=== PATIENT | female | born 1960 | race Caucasian/White ===

== ENCOUNTER → 2018-05-05 14:20 | Outpatient (CLI) | payer OTHER, SELFPAY ==
[2018-05-05 14:36] LABS: Add Manual Diff / Slide Review NO; Basophils Percent Auto 0.6 % (0-2); Eosinophils Percent Auto 2.4 % (2-4); Hematocrit 39.4 % (36-46); Hemoglobin 13.3 g/dL (12.0-16.0); Lymphocytes Percent Auto 27.8 % (25-40); Mean Corpuscular HGB Conc 33.6 % (30-36); Mean Corpuscular Hemoglobin 30.3 PG (26-34); Mean Corpuscular Volume 90.1 fL (80-100); Monocytes Percent Auto 8.5 % (3-14); Neutrophils Absolute Auto 4000 /uL (3000-5900); Neutrophils Percent Auto 60.7 % (50-75); Platelet Count 181 X10^3/uL (150-400); Red Blood Cell Count 4.37 X10^6/uL (4.0-5.2); Red Cell Distribution Width 13.3 % (11.6-14.8); White Blood Cell Count 6.6 X10^3/uL (4.5-11.0)
[2018-05-05 14:48] LABS: Alanine Aminotransferase 31 IU/L (9-52); Albumin 4.2 g/dL (3.5-5.0); Albumin Globulin Ratio 1.6 (1.0-2.8); Alkaline Phosphatase 34 U/L (38-126); Aspartate Aminotransferase 20 IU/L (14-36); BUN Creatinine Ratio 24.3 (6-22); Bilirubin Total 0.5 mg/dL (0.2-1.3); Blood Urea Nitrogen 17 mg/dL (7-17); Calcium 8.9 mg/dL (8.4-10.2); Carbon Dioxide 25 mmol/L (22-32); Chloride 103 mmol/L (98-107); Estimated Glomerular Filt Rate > 60.0 mL/min (>60); Globulin 2.6 g/dL (1.7-4.1); Glucose 104 mg/dL (70-100); HEMOLYSIS < 15 (0-50); Sodium 139 mmol/L (137-145); Total Protein 6.8 g/dL (6.3-8.2)
== END ==
PROVIDERS: Visit Provider Nurse Practitioner Gerontology
DX: C50.919 Malignant neoplasm of unspecified site of unspecified female breast (principal)
CPT/HCPCS: 36415; 80053; 85025

== ENCOUNTER → 2018-05-18 13:57 | Outpatient (CLI) | payer OTHER, SELFPAY ==
--- NOTE | 2018-05-20 09:39 | PC.NURSE ---
Per Ronda's request, spoke with pt and told her that the results of her bone density test are normal. She thanked me and had no further questions at this time.
== END ==
PROVIDERS: Visit Provider Nurse Practitioner Gerontology
DX: C50.919 Malignant neoplasm of unspecified site of unspecified female breast (principal); Z78.0 Asymptomatic menopausal state; Z87.891 Personal history of nicotine dependence
CPT/HCPCS: 77080

== ENCOUNTER → 2018-08-26 15:25 | Outpatient (CLI) | payer OTHER, SELFPAY ==
[2018-08-26 15:45] LABS: Add Manual Diff / Slide Review NO; Basophils Percent Auto 0.9 % (0-2); Eosinophils Percent Auto 1.9 % (2-4); Hematocrit 38.9 % (36-46); Hemoglobin 12.7 g/dL (12.0-16.0); Lymphocytes Percent Auto 30.6 % (25-40); Mean Corpuscular HGB Conc 32.7 % (30-36); Mean Corpuscular Volume 91.5 fL (80-100); Neutrophils Absolute Auto 3600 /uL (3000-5900); Neutrophils Percent Auto 56.6 % (50-75); Platelet Count 187 X10^3/uL (150-400); Red Blood Cell Count 4.25 X10^6/uL (4.0-5.2); Red Cell Distribution Width 13.6 % (11.6-14.8); White Blood Cell Count 6.3 X10^3/uL (4.5-11.0)
[2018-08-26 16:02] LABS: Alanine Aminotransferase 26 IU/L (9-52); Albumin 4.3 g/dL (3.5-5.0); Albumin Globulin Ratio 1.9 (1.0-2.8); Alkaline Phosphatase 28 U/L (38-126); Aspartate Aminotransferase 22 IU/L (14-36); BUN Creatinine Ratio 33.3 (6-22); Bilirubin Total 0.4 mg/dL (0.2-1.3); Blood Urea Nitrogen 20 mg/dL (7-17); Calcium 9.3 mg/dL (8.4-10.2); Carbon Dioxide 28 mmol/L (22-32); Chloride 106 mmol/L (98-107); Estimated Glomerular Filt Rate > 60.0 mL/min (>60); Globulin 2.3 g/dL (1.7-4.1); Glucose 82 mg/dL (70-100); HEMOLYSIS < 15 (0-50); Potassium 3.9 mmol/L (3.4-5.1); Sodium 144 mmol/L (137-145); Total Protein 6.6 g/dL (6.3-8.2)
== END ==
PROVIDERS: Visit Provider Nurse Practitioner Gerontology
DX: C50.212 Malignant neoplasm of upper-inner quadrant of left female breast (principal); Z17.0 Estrogen receptor positive status [ER+]; Z79.810 Long term (current) use of selective estrogen receptor modulators (SERMs)
CPT/HCPCS: 36415; 80053; 85025

== ENCOUNTER 2018-08-29 15:30 | Oncology outpatient (ONC) | payer OTHER, SELFPAY ==
--- NOTE | 2018-05-13 08:50 | ONC.APRN.PN ---
Assessment and Plan (1) Breast cancer Current visit: No Status: Acute 05/13/18 13:05 05/13/18 13:07 Xiomara is a 58-year-old female now 2 years and 7 months from original diagnosis of luminal like breast cancer. She is tolerating tamoxifen without adverse effects in the adjuvant setting. She is due for her annual screening bilateral mammogram this August of 2018. She also will need a gynecology appointment. CBC and CMP unremarkable. Exam is unremarkable today. Overall the patient is feeling well without any acute complaints. Return to clinic in 3 months for provider visit, exam, CBC, CMP. Mammogram to follow. PN -Subjective Interval history: The patient is a 58 year old Female who is being seen in the clinic 05/13/2018. She carries a diagnosis of stage II node-negative ER positive HER-2 negative breast cancer in clinical remission/surveillance since her original diagnosis was made back on July 2015. She presents today for 3 month clinical evaluation. She has been taking tamoxifen in the adjuvant setting since February of 2016. No new complaints whatsoever on exam today. No vaginal bleeding. No hot flashes. Activity tolerance is unchanged. Appetite is unchanged, weight is stable. No new lumps or bumps, no new pain. Denies cough, fever, chills. No recent illnesses or infections. No new health concerns. No headaches. Past Medical History The patient's past medical history is significant for: 1. Left-sided invasive breast cancer. Stage II, pT2 N0 M0 Diagnosis: -08/10/2015. Core needle biopsy of the left breast at the 10 o'clock position.Pathology confirming an invasive carcinoma with a [place] histological grade of 2/3 without LVI. Associated DCIS was noted. Immunostain showing ER and [place] positivity at 95% and 90% respectively. HER2 negative, Ki-67 less than 10%. -09/09/2015. Partial mastectomy with sentinel node procedure. Primary measuring 20 x 12 mm in greatest diameter. Daria histological grade 2/3. DCIS was also seen. Surgical margins were clear with no tumor on ink, closet was the DCIS at 1 mm at the lateral margin. [place] node was otherwise negative. Prognosis: -10/12/2015. Oncotype DX. Recurrence score 25: 10-year risk of distant recurrence after 5 years of tamoxifen at 16%. Adjuvant therapy: -11/14/2015-01/16/2016. Cyclophosphamide paclitaxel ?4. - January 2017. Patient completed radiation therapy. -February 2016-July 2017. Tamoxifen 20 mg daily. Of note, the patient was likely post menopausal pre chemotherapy. -November 23, 2017 - Present: Exemestane 25 mg. Surveillance: -09/20/2017. Bilateral screening mammogram. Extremely dense. No evidence of recurrent disease. -07/28/2017 transvaginal pelvic ultrasound. Uterus is normal size. Endometrium measuring 10 mm and combined thickness. No adnexal pathology seen. No increase uterine blood flow. -02/11/2016. Bone density scan. No evidence of osteopenia or osteoporosis. -02/11/2016. Echocardiogram. EF 60%. No valvualr abnormalities. 2. Post-menopausal hot flashes, managed with her venlafaxine. 3. Chronic headaches, non-migraine on presentation. 4. Irritable bowel syndrome. Home Medications and Allergies Home Medications Medication Instructions Recorded Confirmed Type citalopram [Celexa] 10 mg PO QDAY #30 tab 03/11/17 Rx [IBS MEDICATION] PRN #0 03/27/17 History tamoxifen 10 mg PO BID #60 tab 02/15/18 Rx Allergies Allergy/AdvReac Type Severity Reaction Status Date / Time iodine [IODINE] Allergy Unknown RASH Unverified 03/02/18 13:08 Exam Narrative: well appearing - Constitutional positive no acute distress, positive average body habitus - Routine HEENT Exam Head: Present: normocephalic, atraumatic Eye: Present: conjunctivae pink. Absent: conjunctival icterus, scleral injection - Routine Respiratory Exam Present: Clear to auscultation bilaterally - Routine Cardiovascular Exam Present: RRR, S1, S2. Absent: murmur, gallop, rubs - Routine Abdominal Exam Present: soft, normoactive bowel sounds - Routine Skin Exam Present: intact, normal turgor. Absent: petechiae, rash - Routine Neurological Exam Present: alert, oriented X3 - Routine Psychiatric Exam Present: normal affect, normal thought process
[2018-05-13 12:39] VITALS: BP 116/77; PULSE 66; RESP 18; TEMP 36.8; O2SAT 98
[2018-08-29 15:57] VITALS: BP 115/65; PULSE 58; RESP 18; TEMP 36.8; O2SAT 99
--- NOTE | 2018-08-29 16:43 | ONC.APRN.PN ---
PN -Subjective Interval history: The patient is a 58 year old Female who is being seen in the clinic 08/29/2018. She carries a diagnosis of stage II node-negative ER positive HER-2 negative breast cancer in clinical remission/surveillance since her original diagnosis was made back on July 2015. She presents today for 3 month clinical evaluation. She has been taking tamoxifen in the adjuvant setting since February of 2016. No new complaints whatsoever on exam today. No vaginal bleeding. No hot flashes. Activity tolerance is unchanged. Appetite is unchanged, weight is stable. No new lumps or bumps, no new pain. Denies cough, fever, chills. No recent illnesses or infections. No new health concerns. No headaches. She does not have a primary care provider, has not had a DENTAL EQUIPMENT TECHNICIAN exam in years. Also has not had colonoscopy. Past Medical History The patient's past medical history is significant for: 1. Left-sided invasive breast cancer. Stage II, pT2 N0 M0 Diagnosis: -08/10/2015. Core needle biopsy of the left breast at the 10 o'clock position.Pathology confirming an invasive carcinoma with a [place] histological grade of 2/3 without LVI. Associated DCIS was noted. Immunostain showing ER and [place] positivity at 95% and 90% respectively. HER2 negative, Ki-67 less than 10%. -09/09/2015. Partial mastectomy with sentinel node procedure. Primary measuring 20 x 12 mm in greatest diameter. [place] histological grade 2/3. DCIS was also seen. Surgical margins were clear with no tumor on ink, closet was the DCIS at 1 mm at the lateral margin. [place] node was otherwise negative. Prognosis: -10/12/2015. Oncotype DX. Recurrence score 25: 10-year risk of distant recurrence after 5 years of tamoxifen at 16%. Adjuvant therapy: -11/14/2015-01/16/2016. Cyclophosphamide paclitaxel ?4. - January 2017. Patient completed radiation therapy. -February 2016-July 2017. Tamoxifen 20 mg daily. Of note, the patient was likely post menopausal pre chemotherapy. -November 23, 2017 - Present: Exemestane 25 mg. Surveillance: -09/20/2017. Bilateral screening mammogram. Extremely dense. No evidence of recurrent disease. -07/28/2017 transvaginal pelvic ultrasound. Uterus is normal size. Endometrium measuring 10 mm and combined thickness. No adnexal pathology seen. No increase uterine blood flow. -02/11/2016. Bone density scan. No evidence of osteopenia or osteoporosis. -02/11/2016. Echocardiogram. EF 60%. No valvualr abnormalities. 2. Post-menopausal hot flashes, managed with her venlafaxine. 3. Chronic headaches, non-migraine on presentation. 4. Irritable bowel syndrome. Home Medications and Allergies Home Medications Medication Instructions Recorded Confirmed Type citalopram [Celexa] 10 mg PO QDAY #30 tab 03/11/17 Rx [IBS MEDICATION] PRN #0 03/27/17 History tamoxifen 10 mg PO BID #60 tab 02/15/18 Rx Allergies Allergy/AdvReac Type Severity Reaction Status Date / Time iodine [IODINE] Allergy Unknown RASH Unverified 03/02/18 13:08 Exam Vital signs: Last Vital Signs Temp 98.2 F 08/29/18 15:57 Pulse 58 L 08/29/18 15:57 Resp 18 08/29/18 15:57 BP 115/65 08/29/18 15:57 Pulse Ox 99 08/29/18 15:57 Assessment and Plan (1) Breast cancer Current visit: No Status: Acute The patient is a 58 year old Female who is being seen in the clinic 08/29/2018. She carries a diagnosis of stage II node-negative ER positive HER-2 negative breast cancer in clinical remission/surveillance since her original diagnosis was made back on July 2015. Has been taking tamoxifen since February 2016. Reassuringly on exam today no clinical signs or symptoms to suggest disease recurrence. I did discuss with the patient the importance of establishing with a primary care provider specifically for preventative medicine. I would like for the patient to have a DENTAL EQUIPMENT TECHNICIAN exam at least every other year, preferably yearly. Patient is also due for her baseline screening colonoscopy. She is due for annual bilateral screening mammogram as well. In regards to new onset voice hoarseness and questionable finding on outside imaging (chiropractor) I will order a two view plain film C-spine. Based on these findings will call patient and discuss further evaluation if indicated. Patient verbalizes understanding and agrees with the above plan of care. I will have the pt return in 3 months to establish care with one of our new oncologists.
--- NOTE | 2018-09-13 11:27 | PC.NURSE ---
Pt notified of changes on imaging. Encouraged f/u with PCP
--- NOTE | 2018-09-13 11:29 | PC.NURSE ---
Pt notified of no acute changes on imaging. Encouraged to F/U with PCP which pt says is sometime in celio
== END 2018-08-30 12:00 ==
PROVIDERS: Visit Provider Nurse Practitioner Gerontology
DX: C50.212 Malignant neoplasm of upper-inner quadrant of left female breast (principal); Z17.0 Estrogen receptor positive status [ER+]; Z79.810 Long term (current) use of selective estrogen receptor modulators (SERMs)
CPT/HCPCS: 72040; 99214

== ENCOUNTER → 2018-08-29 16:34 | Outpatient (CLI) | payer OTHER, SELFPAY ==
--- NOTE | 2018-08-29 16:36 | DI.RAD.S_ITS ---
PROCEDURE: XR CERVICAL SPINE 2V OR 3V INDICATIONS: new onset neck pain, no injury. TECHNIQUE: 3 view(s) of the cervical spine were acquired. COMPARISON: [facility], CT, C-SPINE WITHOUT CONTRAST, 03/27/2017, 14:25. FINDINGS: Bones: Mild loss of disc height is seen at the C5-C6 level. Bridging anterior osteophytes are seen at C5-C6 and C6-C7. No fractures or dislocations are seen. No suspicious lytic or blastic lesions are seen. Soft tissues: No prevertebral soft tissue swelling. The visualized lung apices are unremarkable. IMPRESSION: Cervical spine degenerative changes are seen, which are most prominent at C5-C6. Dictated by: Hugo Escoto M.D. on 08/29/2018 at 17:00 Approved by: Hugo Escoto M.D. on 08/29/2018 at 17:01
== END ==
PROVIDERS: Visit Provider Nurse Practitioner Gerontology
DX: M50.322 Other cervical disc degeneration at C5-C6 level (principal)
CPT/HCPCS: 72040

== ENCOUNTER → 2018-11-29 15:18 | Outpatient (CLI) | payer OTHER, SELFPAY ==
[2018-11-29 15:49] LABS: Add Manual Diff / Slide Review NO; Basophils Percent Auto 0.6 % (0-2); Hematocrit 37.9 % (36-46); Hemoglobin 12.6 g/dL (12.0-16.0); Lymphocytes Percent Auto 31.8 % (25-40); Mean Corpuscular HGB Conc 33.4 % (30-36); Mean Corpuscular Hemoglobin 30.4 PG (26-34); Monocytes Percent Auto 8.7 % (3-14); Neutrophils Absolute Auto 3700 /uL (1500-7000); Neutrophils Percent Auto 56.9 % (50-75); Platelet Count 197 X10^3/uL (150-400); Red Blood Cell Count 4.16 X10^6/uL (4.0-5.2); Red Cell Distribution Width 13.3 % (11.6-14.8); White Blood Cell Count 6.5 X10^3/uL (4.5-11.0)
[2018-11-29 16:03] LABS: Alanine Aminotransferase 25 IU/L (9-52); Albumin 4.2 g/dL (3.5-5.0); Albumin Globulin Ratio 1.8 (1.0-2.8); Alkaline Phosphatase 33 U/L (38-126); Aspartate Aminotransferase 18 IU/L (14-36); Bilirubin Total 0.3 mg/dL (0.2-1.3); Blood Urea Nitrogen 12 mg/dL (7-17); Calcium 9.2 mg/dL (8.4-10.2); Carbon Dioxide 30 mmol/L (22-32); Chloride 101 mmol/L (98-107); Estimated Glomerular Filt Rate > 60.0 mL/min (>60); Globulin 2.3 g/dL (1.7-4.1); Glucose 80 mg/dL (70-100); HEMOLYSIS < 15 (0-50); Sodium 140 mmol/L (137-145); Total Protein 6.5 g/dL (6.3-8.2)
== END ==
PROVIDERS: Visit Provider Nurse Practitioner Gerontology
DX: C50.919 Malignant neoplasm of unspecified site of unspecified female breast (principal)
CPT/HCPCS: 36415; 80053; 85025

== ENCOUNTER → 2018-12-26 15:06 | Outpatient (CLI) | payer OTHER, SELFPAY ==
--- NOTE | 2018-12-26 | DI.MG.S_ITS ---
BILATERAL DIGITAL SCREENING MAMMOGRAM 3D/2D WITH CAD POST LUMPECTOMY: 12/26/2018 CLINICAL: Routine screening. Personal history of breast cancer. Family history of breast cancer. Comparison is made to exam dated: 09/20/2017 [facility]. The tissue of both breasts is extremely dense, which lowers the sensitivity of mammography. Current study was also evaluated with a Computer Aided Detection (CAD) system. There are benign post operative findings in the left breast. No significant masses, calcifications, or other findings are seen in either breast. There has been no significant interval change. IMPRESSION: There is no mammographic evidence of malignancy. A 1 year screening mammogram is recommended. This exam was interpreted at Station ID: [id number]. NOTE: For mammograms, a report in lay terms will be sent to the patient. Approximately 15% of breast malignancies will not be visualized mammographically. In the management of a palpable breast mass, a negative mammogram must not discourage biopsy of a clinically suspicious lesion. Electronically Signed By: Rosa sams/milton:12/26/2018 16:11:11 copy to: SHAR CALDWELL letter sent: Normal Exam ACR BI-RADS Category 2: Benign Finding(s) 3342F
== END ==
PROVIDERS: Visit Provider Internal Medicine Hematology & Oncology
DX: Z12.31 Encounter for screening mammogram for malignant neoplasm of breast (principal); Z85.3 Personal history of malignant neoplasm of breast; Z80.3 Family history of malignant neoplasm of breast
CPT/HCPCS: 77063; 77067

== ENCOUNTER → 2019-02-28 07:21 | Outpatient (CLI) | payer OTHER, SELFPAY ==
[2019-02-28 09:13] LABS: Add Manual Diff / Slide Review NO; Basophils Absolute Auto 100 /uL (0-100); Eosinophils Absolute Auto 200 /uL (0-450); Eosinophils Percent Auto 3.6 % (2-4); Hematocrit 39.9 % (36-46); Hemoglobin 13.4 g/dL (12.0-16.0); Lymphocytes Absolute Auto 1500 /uL (1100-4500); Lymphocytes Percent Auto 26.8 % (25-40); Mean Corpuscular HGB Conc 33.5 % (30-36); Mean Corpuscular Hemoglobin 30.9 PG (26-34); Mean Corpuscular Volume 92.3 fL (80-100); Monocytes Absolute Auto 400 /uL (0-900); Monocytes Percent Auto 7.7 % (3-14); Neutrophils Absolute Auto 3400 /uL (1500-7000); Neutrophils Percent Auto 60.9 % (50-75); Platelet Count 194 X10^3/uL (150-400); Red Blood Cell Count 4.32 X10^6/uL (4.0-5.2); Red Cell Distribution Width 13.4 % (11.6-14.8); White Blood Cell Count 5.6 X10^3/uL (4.5-11.0)
[2019-02-28 09:38] LABS: Alanine Aminotransferase 18 IU/L (9-52); Albumin 4.3 g/dL (3.5-5.0); Alkaline Phosphatase 29 U/L (38-126); Aspartate Aminotransferase 18 IU/L (14-36); Bilirubin Total 0.2 mg/dL (0.2-1.3); Blood Urea Nitrogen 18 mg/dL (7-17); Carbon Dioxide 26 mmol/L (22-32); Chloride 105 mmol/L (98-107); Cholesterol 180 mg/dL (140-199); Estimated Glomerular Filt Rate > 60.0 mL/min (>60); Globulin 2.2 g/dL (1.7-4.1); Glucose 93 mg/dL (70-100); HDL Cholesterol 62 mg/dL (40-60); HEMOLYSIS < 15 (0-50); LDL Cholesterol Calculated 109 mg/dL (<100); Potassium 3.9 mmol/L (3.4-5.1); Sodium 141 mmol/L (137-145); Total Protein 6.5 g/dL (6.3-8.2); Triglycerides 45 mg/dL (35-150)
[2019-02-28 10:03] LABS: Thyroid Stimulating Hormone 0.06 uIU/mL (0.47-4.68)
[2019-03-01 16:51] LABS: Free T3, Triiodothyronine Free 3.87 pg/mL (2.77-5.27); Free T4, Direct Thyroxine 1.14 ng/dL (0.78-2.19)
[2019-03-04 17:14] LABS: Anti Thyroglobulin Antibody < 1 IU/mL (< 2); Thyroid Peroxidase Antibodies 1 IU/mL (< 9)
== END ==
PROVIDERS: Visit Provider Naturopath
DX: Z00.00 Encounter for general adult medical examination without abnormal findings (principal); K59.00 Constipation, unspecified; F33.0 Major depressive disorder, recurrent, mild; R94.6 Abnormal results of thyroid function studies
CPT/HCPCS: 36415; 80053; 80061; 84439; 84443; 84481; 85025; 86376; 86800

== ENCOUNTER → 2019-10-30 09:12 | Outpatient (CLI) | payer OTHER, SELFPAY ==
--- NOTE | 2019-10-30 09:15 | DI.MG.S_ITS ---
BILATERAL DIGITAL DIAGNOSTIC MAMMOGRAM 3D/2D: 10/30/2019 CLINICAL: Personal history of breast cancer. Family history of breast cancer. Left breast nipple abnormality described as a small mass the size of ' grain of rice'. There is no pain in general, and this was removed in her doctor's office per report. She says currently without symptoms. No nipple discharge. Comparison is made to exams dated: 12/26/2018 mammogram, 09/20/2017 mammogram - [facility], and 07/29/[address] mamm[address] - [facility]. The tissue of both breasts is extremely dense, which lowers the sensitivity of mammography. The left breast has stable post-operative findings. No significant masses, calcifications, or other findings are seen in either breast. IMPRESSION: INCOMPLETE: NEEDS ADDITIONAL IMAGING EVALUATION There is no abnormality seen in the left breast to correspond with the nipple abnormality in the sub-areolar depth, however, ultrasound is recommended and will immediately follow this examination. This exam was interpreted at Station ID: [id number]. NOTE: For mammograms, a report in lay terms will be sent to the patient. Approximately 15% of breast malignancies will not be visualized mammographically. In the management of a palpable breast mass, a negative mammogram must not discourage biopsy of a clinically suspicious lesion. Electronically Signed By: Niko Suarez M.D. aty/:10/30/2019 16:50:03 copy to: SHAR CALDWELL ACR BI-RADS Category 0: Incomplete [id number]
--- NOTE | 2019-10-30 09:15 | DI.US.S_ITS ---
ULTRASOUND OF LEFT BREAST: 10/30/2019 CLINICAL: Focal left nipple lump. Comparison is made to exams dated: 10/30/2019 mammogram, 12/26/2018 mammogram, 09/20/2017 mammogram - [facility], 07/29/2016 mammogram - [facility], 08/16/2015 breast MRI - [facility], and 07/30/2015 mammogram - [facility]. Color flow and real-time ultrasound of the left breast were performed. Álvarez scale images of the real-time examination were reviewed. The left breast has post-operative/post treatment findings with associated ill-defined scarring in the anterior depth of the left breast. No ductal dilatation. No intraductal masses. No axillary lymphadenopathy. IMPRESSION: BENIGN There is no sonographic evidence of malignancy. There is no abnormality seen in the left breast to correspond with the area of clinical concern and nipple abnormality, however, clinical followup is recommended for persistent or recurrent symptoms. A 1 year screening mammogram is recommended. This exam was interpreted at Station ID: [id number]. Electronically Signed By: Niko Suarez M.D. at/:10/30/2019 16:53:41 copy to: SHAR CALDWELL letter sent: Normal Exam Ultrasound BI-RADS: 2 Benign
[2019-10-30 10:15] LABS: Add Manual Diff / Slide Review NO; Basophils Absolute Auto 0 /uL (0-100); Basophils Percent Auto 1.2 % (0-2); Eosinophils Absolute Auto 100 /uL (0-450); Hematocrit 42.1 % (36-46); Hemoglobin 14.4 g/dL (12.0-16.0); Lymphocytes Absolute Auto 1600 /uL (1100-4500); Lymphocytes Percent Auto 39.3 % (25-40); Mean Corpuscular HGB Conc 34.1 % (30-36); Mean Corpuscular Hemoglobin 31.1 PG (26-34); Mean Corpuscular Volume 91.3 fL (80-100); Monocytes Absolute Auto 400 /uL (0-900); Monocytes Percent Auto 8.5 % (3-14); Neutrophils Absolute Auto 2000 /uL (1500-7000); Platelet Count 175 X10^3/uL (150-400); Red Blood Cell Count 4.61 X10^6/uL (4.0-5.2); Red Cell Distribution Width 13.1 % (11.6-14.8); White Blood Cell Count 4.1 X10^3/uL (4.5-11.0)
[2019-10-30 10:25] LABS: Alanine Aminotransferase 17 IU/L (<35); Albumin 4.9 g/dL (3.5-5.0); Albumin Globulin Ratio 1.9 (1.0-2.8); Alkaline Phosphatase 33 U/L (38-126); Aspartate Aminotransferase 24 IU/L (14-36); BUN Creatinine Ratio 23.3 (6-22); Bilirubin Total 0.9 mg/dL (0.2-1.3); Blood Urea Nitrogen 14 mg/dL (7-17); Calcium 9.8 mg/dL (8.4-10.2); Carbon Dioxide 28 mmol/L (22-32); Chloride 103 mmol/L (98-107); Estimated Glomerular Filt Rate > 60.0 mL/min (>60); Globulin 2.6 g/dL (1.7-4.1); Glucose 92 mg/dL (70-100); HEMOLYSIS < 15 (0-50); Lactate Dehydrogenase 348 U/L (313-618); Sodium 140 mmol/L (137-145); Total Protein 7.5 g/dL (6.3-8.2)
[2019-10-30 10:40] LABS: Prolactin 7.9 ng/mL (3.0-18.6)
[2019-10-30 10:55] LABS: Thyroid Stimulating Hormone 1.76 uIU/mL (0.47-4.68)
== END ==
PROVIDERS: Visit Provider Internal Medicine Hematology & Oncology
DX: R92.8 Other abnormal and inconclusive findings on diagnostic imaging of breast (principal); C50.212 Malignant neoplasm of upper-inner quadrant of left female breast; N64.52 Nipple discharge; N64.3 Galactorrhea not associated with childbirth; Z80.3 Family history of malignant neoplasm of breast; Z17.0 Estrogen receptor positive status [ER+]
CPT/HCPCS: 36415; 76642; 77066; 80053; 83615; 84146; 84443; 85025; G0279

== ENCOUNTER 2020-05-26 15:00 | Emergency (ER) | payer OTHER, SELFPAY ==
[2020-05-26 15:14] VITALS: BP 117/58; PULSE 77; RESP 15; TEMP 37.1; O2SAT 99; BMI 25.7
--- NOTE | 2020-05-26 16:23 | ED.WOUNDLAC ---
HPI - Wound/Laceration General Chief Complaint: Wound/Laceration Stated Complaint: injury to right foot, bleeding Time Seen by Provider: 05/26/20 15:47 Source: patient Mode of arrival: Ambulatory Limitations: no limitations History of Present Illness HPI narrative: CC: laceration dorsal right foop HPI: The patient is a 60-year-old female who sustained a 1 cm laceration to the dorsum of her right foot when she dropped her gardening clippers while cutting aleisha is and sustained her laceration. She states that her tetanus is up-to-date and is less than 10 years ago. She denies any other complaints. She has had no recent fever chills sweats chest pain cough shortness of breath abdominal pain nausea or vomiting. Related Data Home Medications Medication Instructions Recorded Confirmed [IBS MEDICATION] 1 tab DAILY #0 03/27/17 11/09/19 Previous Rx's Medication Instructions Recorded citalopram [Celexa] 10 mg PO QDAY #30 tab 03/11/17 tamoxifen 20 mg PO DAILY #90 tab 10/09/19 Allergies Allergy/AdvReac Type Severity Reaction Status Date / Time iodine [IODINE] Allergy Unknown RASH Verified 12/02/18 15:31 Review of Systems Review of Systems Narrative: The patient's review of systems were all negative except for those mentioned in the history of present illness. Patient History Social History Smoking Status: Never smoker Smoking Status: Never smoker alcohol intake frequency: 0-2 drinks per day Substance Use Type: does not use Exam Narrative Exam Narrative: PHYSICAL EXAM: PHYSICAL EXAM: CONSTITUTIONAL: Awake, Alert, Oriented, Coherent, Cooperative in NAD. Does not appear toxic or ill. HEAD: AT/NC EENT: PERRL, FROM of eyes, EXTREMITIES: Patient has a slightly sinusoidal oblique 1.5 cm laceration over the dorsum of her right foot just proximal to the metatarsophalangeal joint of her 4th toe. The laceration is a full-thickness laceration. Bleeding was controlled. SKIN: No rash, bruising, petechiae or purpura otherwise noted . NEURO: Awake, alert, oriented, conversive, cranial nerves II-XII are symmetrical , moves all 4 extremities and is ambulatory. MENTAL HEALTH: Does not appear anxious or depressed. Initial Vital Signs Initial Vital Signs: Vital Signs Temperature 98.7 F 05/26/20 15:14 Pulse Rate 77 05/26/20 15:14 Respiratory Rate 15 05/26/20 15:14 Blood Pressure 117/58 L 05/26/20 15:14 Pulse Oximetry 99 05/26/20 15:14 Course Course Course Narrative: 1615: PROCEDURE NOTE: LACERATION REPAIR:The slightly oblique 1.5 cm laceration over the dorsum of her right foot just proximal to the metatarsophalangeal joint of the 4th toe was attempted to be closed with 1 horizontal mattress suture. However this did not close the laceration completely and a simple 2nd 4-0 nylon suture was placed. This was performed after it was adequately cleansed with saline and 4x4s and anesthetized with 1.5 cc of 2% lidocaine. The patient tolerated the procedure well. Bleeding was controlled bandage applied and the patient discharge. Orders Ordered: Discontinued Medications Lidocaine HCl (Xylocaine 2%) 5 ml SUBCUT NOW ONE Stop: 05/26/20 15:55 Last Admin: 05/26/20 16:24 Dose: 5 ml Documented by: NADINE Vital Signs Vital signs: Vital Signs - 8 hr 05/26/20 15:14 05/26/20 16:25 Temperature 98.7 F 98.1 F Pulse Rate 77 68 Respiratory Rate 15 16 Blood Pressure 117/58 L 120/58 L Pulse Oximetry 99 97 Discharge Plan Departure Patient Disposition: Home Clinical Impression: Laceration Foot laceration Qualifiers: Encounter type: initial encounter Laterality: right Qualified Code(s): S91.311A - Laceration without foreign body, right foot, initial encounter Discharge Date/Time: 05/26/20 16:41 Instructions: DI for Wound Infection, DI for Minor Laceration Activity Restrictions/Additional Instructions: 1. Keep your laceration covered. Cover it with a Band-Aid. Apply a small amount triple antibiotic with acute tear of over the laceration and cover with a Band-Aid morning and night 2. Wound check in 2 days. If the laceration appears to become red hot swollen or draining you need to return to the emergency department. Otherwise follow-up with your primary care physician. 3. After 24 hours you can wash the laceration in running water with soap pat dry and apply the antibiotic ointment has recommended. 4 sutures come out in 7-10 days. 5. You can follow-up with your primary care physician or return to the emergency department for re-evaluation. 6. For pain and discomfort you can take 3, 200 mg ibuprofen to help every 6 hours or 1 Aleve tablet every 12 hours. Prescriptions: No Action citalopram [Celexa] 10 MG tablet 10 mg PO QDAY Qty: 30 RF: 6 [IBS MEDICATION] 1 tab DAILY Qty: 0 RF: 0 tamoxifen 20 mg Tablet 20 mg PO DAILY Qty: 90 RF: 2 Referrals: Peggy Springer ARNP [Primary Care Provider] -
[2020-05-26] MEDS: LIDOCAINE 2% INJ MDV 5 ML SUBCUT (16:24)
[2020-05-26 16:25] VITALS: BP 120/58; PULSE 68; RESP 16; TEMP 36.7; O2SAT 97
== END 2020-05-26 16:41 | disposition home or self-care (01) ==
PROVIDERS: Emergency Provider Emergency Medicine
DX: S91.311A Laceration without foreign body, right foot, initial encounter (principal); W45.8XXA Other foreign body or object entering through skin, initial encounter
CPT/HCPCS: 12001; 99282; 99283

== ENCOUNTER → 2020-10-31 14:37 | Outpatient (CLI) | payer BC, SELFPAY ==
--- NOTE | 2020-10-31 14:39 | DI.MG.S_ITS ---
BILATERAL DIGITAL SCREENING MAMMOGRAM 3D/2D WITH CAD POST LUMPECTOMY: 10/31/2020 CLINICAL: Routine screening. Personal history of left breast cancer. Family history of breast cancer. Comparison is made to exams dated: 12/26/2018 mammogram, 10/30/2019 mammogram, and 09/20/2017 mammogram - [facility]. The tissue of both breasts is extremely dense, which lowers the sensitivity of mammography. Current study was also evaluated with a Computer Aided Detection (CAD) system. No significant masses, calcifications, or other findings are seen in either breast. There has been no significant interval change. IMPRESSION: NEGATIVE There is no mammographic evidence of malignancy. A 1 year screening mammogram is recommended. This exam was interpreted at Station ID: [id number]. NOTE: For mammograms, a report in lay terms will be sent to the patient. Approximately 15% of breast malignancies will not be visualized mammographically. In the management of a palpable breast mass, a negative mammogram must not discourage biopsy of a clinically suspicious lesion. Electronically Signed By: Rosa sams/milton:10/31/2020 16:53:33 copy to: MARIETTA REHMAN letter sent: Normal Exam ACR BI-RADS Category 1: Negative [id number]
== END ==
PROVIDERS: PCP Naturopath; Referring Provider Naturopath; Visit Provider Internal Medicine Hematology & Oncology
DX: Z12.31 Encounter for screening mammogram for malignant neoplasm of breast (principal); Z85.3 Personal history of malignant neoplasm of breast; Z80.3 Family history of malignant neoplasm of breast
CPT/HCPCS: 77063; 77067

== ENCOUNTER 2021-01-08 09:38 | Emergency (ER) | payer BC, SELFPAY ==
[2021-01-08 09:56] VITALS: BP 160/69; PULSE 70; RESP 18; TEMP 36.4; O2SAT 99; BMI 25.0
--- NOTE | 2021-01-08 10:21 | ED_ITS ---
HPI - Extremity Problem <Darlyn Acevedo PA-C - Last Filed: 01/08/21 13:23> General Chief complaint: Extremity Problem,Nontraumatic Stated complaint: Right side Sciatica pain Time Seen by Provider: 01/08/21 10:21 Source: patient Mode of arrival: Ambulatory Limitations: no limitations History of Present Illness HPI Narrative: Well-appearing extremely uncomfortable 7-year-old woman who pr esents complaining right low back pain radiating into her buttock and down the back of her right leg to her knee. She endorses mild chronic low back pain on the right and occasional hip pains but she did yoga class on last week about 6 days ago and on Wednesday she was having this severe pain that has been progressively worsening every day it is worse with walking, standing moving her leg it is relieved by bring her knee up towards her chest somewhat. She describes the pain as sharp and shooting pain traveling from her right low back to her right buttock and into her back of her thigh. She does say she has had sciatica before years ago and this feels similar but it is worse. She has tried ibuprofen at home with no relief including some ibuprofen this morning. Last night her pain was so bad that she was at 1 point crawling because it was too painful to walk. She denies fevers, chills, dysuria, flank pain, abdominal pain, chest pain, shortness of breath, numbness or tingling or any other symptoms. MD Complaint: extremity pain and other (Leg and back pain) Onset (ago): day(s) (6) Pain Consistency: constant and other (Much worse with movement /weight-bearing) Location: right and lower extremity Severity scale (1-10): 7 Quality: sharp and other (Shooting) Radiation: distal (Starts in her low right back/buttock and radiates into her posterior thigh) Relieving factors: nothing Exacerbating factors: range of motion, weight bearing, walking and palpation Associated symptoms: denies other symptoms Context: other (Distant history of sciatica) Related Data Home Medications Medication Instructions Recorded Confirmed [IBS MEDICATION] 1 tab DAILY #0 03/27/17 11/09/19 Previous Rx's Medication Instructions Recorded citalopram [Celexa] 10 mg PO QDAY #30 tab 03/11/17 tamoxifen 20 mg PO DAILY #180 tab 11/04/20 oxycodone-acetaminophen [Percocet] 1 tab PO Q8H PRN #14 tab 01/08/21 prednisolone See Rx Instructions .ROUTE 01/08/21 .COMPLEX #48 ea Allergies Allergy/AdvReac Type Severity Reaction Status Date / Time iodine [IODINE] Allergy Unknown RASH Verified 12/02/18 15:31 Review of Systems <Darlyn Acevedo PA-C - Last Filed: 01/08/21 13:23> Review of Systems Narrative: GENERAL: Denies chills, fatigue, malaise, fever, sweats. HEENT: Denies sinus pain, ear pain, sore throat, difficulty swallowing, dizziness. RESPIRATORY: Denies dyspnea, cough, wheezing, hemoptysis, sputum. CARDIOVASCULAR: Denies chest pain, palpitations, orthopnea, edema, GASTROINTESTINAL: Denies nausea, vomiting, abdominal pain, diarrhea, constipation, melena. : Denies dysuria, frequency, incontinence, hematuria, urinary retention. MUSCULOSKELETAL: Positive for weakness, low back pain, posterior thigh pain negative for joint pain, positive for difficulty walking SKIN: Denies rash, skin lesions, or other NEUROLOGIC: Denies weakness, headache, numbness, change in speech, confusion, seizures, incoordination. PSYCHIATRIC: No concerning psychosocial issues. 12 point review of systems is negative except for those stated above ROS Unobtainable: All systems reviewed & are unremarkable except as noted in HPI and below Patient History <Darlyn Acevedo PA-C - Last Filed: 01/08/21 13:23> Social History Smoking Status: Never smoker Smoking Status: Never smoker alcohol intake frequency: 0-2 drinks per day Substance Use Type: does not use Exam <Darlyn Acevedo PA-C - Last Filed: 01/08/21 13:23> Narrative Exam Narrative: GENERAL: 61 year old patient appears stated age. Well-nourished, well-developed patient, in mild distress--sitting cockeyed in the bed with her right knee elevated towards her chest looking very uncomfortable. HEAD: Atraumatic. Normocephalic. EYES: Pupils equal round and reactive. Extraocular motions intact. No scleral icterus. No injection or drainage. ENT: Nose without bleeding, purulent drainage. Airway patent. NECK: Trachea midline. Non tender CARDIOVASCULAR: Regular rate and rhythm without murmurs, gallops, or rubs. RESPIRATORY: Clear to auscultation. Breath sounds equal bilaterally. No wheezes, rales, or rhonchi. GASTROINTESTINAL: Abdomen soft, non-tender, nondistended. EXTREMITIES: There is tenderness over the SI joint, L5-6, and at the sciatic nerve exit/posterior thigh. Strength is 5/5 on the left lower extremity, on the right flexion at the hip strength is 3/5 extension is 4/5, flexion extension at the knee and dorsiflexion plantar flexion of the foot are 4/5 on the right. Sensation is intact bilaterally equal. Pulses are intact distally bilaterally equal. No edema or joint tenderness. BACK: There is tenderness over the low lumbar spine, paraspinal muscles and SI joint on the right. Otherwise Nontender without deformity or crepitance. No flank tenderness. NEURO: AOx3. She has a slow antalgic gait favors the right leg walking with a cane or walker. SKIN: No rash or erythema of visible areas Initial Vital Signs Initial Vital Signs: Vital Signs Temperature 97.6 F 01/08/21 09:56 Pulse Rate 70 01/08/21 09:56 Respiratory Rate 18 01/08/21 09:56 Blood Pressure 160/69 H 01/08/21 09:56 Pulse Oximetry 99 01/08/21 09:56 <Ashli Freitas DO - Last Filed: 01/08/21 14:20> Initial Vital Signs Initial Vital Signs: Vital Signs Temperature 97.6 F 01/08/21 09:56 Pulse Rate 70 01/08/21 09:56 Respiratory Rate 18 01/08/21 09:56 Blood Pressure 160/69 H 01/08/21 09:56 Pulse Oximetry 99 01/08/21 09:56 Course <Darlyn Acevedo PA-C - Last Filed: 01/08/21 13:23> Orders Ordered: ED Orders 01/08/21 10:34 XR lumbar spine 2-3V Stat Discontinued Medications Ketorolac Tromethamine (Ketorolac 60 Mg/2 Ml Vial) 30 mg IM NOW ONE Stop: 01/08/21 10:36 Last Admin: 01/08/21 10:49 Dose: 30 mg Documented by: SANJAY Vital Signs Vital signs: Vital Signs - 8 hr 01/08/21 09:56 01/08/21 12:19 Temperature 97.6 F Pulse Rate 70 65 Respiratory Rate 18 16 Blood Pressure 160/69 H 124/61 Pulse Oximetry 99 100 <Ashli Freitas DO - Last Filed: 01/08/21 14:20> Orders Ordered: ED Orders 01/08/21 10:34 XR lumbar spine 2-3V Stat Discontinued Medications Ketorolac Tromethamine (Ketorolac 60 Mg/2 Ml Vial) 30 mg IM NOW ONE Stop: 01/08/21 10:36 Last Admin: 01/08/21 10:49 Dose: 30 mg Documented by: KARIN Vital Signs Vital signs: Vital Signs - 8 hr 01/08/21 09:56 01/08/21 12:19 Temperature 97.6 F Pulse Rate 70 65 Respiratory Rate 18 16 Blood Pressure 160/69 H 124/61 Pulse Oximetry 99 100 MDM - Extremity (Nontraumatic) <Darlyn Acevedo PA-C - Last Filed: 01/08/21 13:23> Imaging Data L spine XR: Attestation: I personally reviewed and interpreted this imaging study as follows: Radiologist's Impression: [address] [id number] ReportSigned Patient: Xiomara Valadez LMR#: [id number]: 1960cct:[id number]/Sex: 61 / FDate of Service: 01/08/21Loc: EDAccession Number: [id number] Procedure: XR lumbar spine 2-3V Ordering Provider: Darlyn Acevedo P.A-C PROCEDURE: XR LUMBAR SPINE 2-3V INDICATIONS: severe acute sciatica, difficulty bearing weight TECHNIQUE: 3 views of the lumbar spine were acquired. COMPARISON: None. FINDINGS: Bones: 5 [id number] vertebrae are present. There is normal bony alignment. Minor degenerative endplate changes at L4. No vertebral body compression fractures. No suspicious bony lesions. Soft tissues: Overlying bowel gas pattern is normal. No suspicious soft tissue calcifications. IMPRESSION: 1. No evidence of acute vertebral compression fracture. 2. If symptoms do not resolve with conservative management, MRI is recommended. Dictated by: Rebeca Wray M.D. on 01/08/2021 at 10:04 Approved by: Rebeca Wray M.D. on 01/08/2021 at 10:05 [facility] Narrative Medical decision making narrative: This is a well-appearing 61-year-old woman who presents in distress with right low back right buttock and right leg pain with pain radiating down into her right leg. Symptoms began the day after she did a yoga practice class. They have been worsening since that time about 5 days ago. She has had similar symptoms previously but this been a number of years since this has been a problem for her. She has no red flag symptoms she does have some tingling in her thigh and pain shooting down to her calf and sometimes in her foot. She is however able to ambulate with assistance of cane or walker. Prescription for steroid medication, short course percocet, advised to follow-up with physiatry or orthopedics for further evaluation possible steroid injection. Also advised to see her primary care provider and but she may potentially need an MRI for further evaluation as an outpatient if her symptoms are not improving. X-rays were obtained in the emergency department and these were unremarkable. Emergency return precautions provided all questions answered. Discharge Plan Departure Patient Disposition: Home Clinical Impression: Gait abnormality Low back pain with right-sided sciatica Qualifiers: Chronicity: acute Back pain laterality: right Qualified Code(s): M54.41 - Lumbago with sciatica, right side Activity Restrictions/Additional Instructions: Thank you for letting us be part of your care in the emergency department today. Your exam is consistent with sciatic pain, your x-rays today returned without any evidence concerning for compression or fracture. I am concerned by how debilitated you are because of this, and I am going to prescribe some steroid medicine for you and we can also consider some stronger pain medicine for a short course. I am also advising you to see physiatry or orthopedics as you may benefit from an injection. I recommend you take it slow and use a walker or at minimum a cane as needed to help with walking. You stated that you do have a walker available to use at home as well as a cane. I recommend you follow-up with your primary care provider as well, if your symptoms are not improving soon or certainly if they are worsening you may need to have an MRI as an outpatient in your primary care provider could order this for you needed. It is important to monitor for new or worsening symptoms over the next few days, including fevers, chills, flank pain, loss of bowel or bladder function, increasing difficulty with ambulation or any other symptoms of concern to you. Prescriptions: New prednisolone 5 mg (48 tabs) tablets,dose pack See Rx Instructions .ROUTE .COMPLEX Qty: 48 RF: 0 oxycodone-acetaminophen [Percocet] 5-325 mg tablet 1 tab PO Q8H PRN (Reason: pain acute) Qty: 14 RF: 0 No Action citalopram [Celexa] 10 MG tablet 10 mg PO QDAY Qty: 30 RF: 6 [IBS MEDICATION] 1 tab DAILY Qty: 0 RF: 0 tamoxifen 20 mg Tablet 20 mg PO DAILY Qty: 180 RF: 0 Referrals: Kyrie Vinson DO [Physician] - (Acute R side LBP w/sciatica, diff ambulating,poss candidate for injection) Deb Beltran ND [Primary Care Provider] - Chad Ortega MD [Physician] - (Acute R side sciatica with gait change, neg xray, may benefit from injection) <Ashli Freitas DO - Last Filed: 01/08/21 14:20> Cosign ED Attending Cosmamadouature Attestation: I was immediately available in the department for consultation. Documentation has been reviewed.
--- NOTE | 2021-01-08 10:34 | DI.RAD.S_ITS ---
PROCEDURE: XR LUMBAR SPINE 2-3V INDICATIONS: severe acute sciatica, difficulty bearing weight TECHNIQUE: 3 views of the lumbar spine were acquired. COMPARISON: None. FINDINGS: Bones: 5 [id number] vertebrae are present. There is normal bony alignment. Minor degenerative endplate changes at L4. No vertebral body compression fractures. No suspicious bony lesions. Soft tissues: Overlying bowel gas pattern is normal. No suspicious soft tissue calcifications. IMPRESSION: 1. No evidence of acute vertebral compression fracture. 2. If symptoms do not resolve with conservative management, MRI is recommended. Dictated by: Rebeca Wray M.D. on 01/08/2021 at 10:04 Approved by: Rebeca Wray M.D. on 01/08/2021 at 10:05
[2021-01-08] MEDS: KETOROLAC 60 MG/2 ML VIAL 30 MG IM (10:49)
[2021-01-08 12:19] VITALS: BP 124/61; PULSE 65; RESP 16; O2SAT 100
== END 2021-01-08 12:19 | disposition home or self-care (01) ==
PROVIDERS: Emergency Provider Student in an Organized Health Care Education/Training Program; PCP Naturopath
DX: M54.41 Lumbago with sciatica, right side (principal); R26.9 Unspecified abnormalities of gait and mobility
CPT/HCPCS: 72100; 96372; 99283; J1885

== ENCOUNTER → 2021-03-17 09:56 | Outpatient (CLI) | payer BC, SELFPAY ==
[2021-03-17 11:54] LABS: Add Manual Diff / Slide Review NO; Basophils Absolute Auto 0 /uL (0-100); Basophils Percent Auto 0.7 % (0-2); Eosinophils Absolute Auto 200 /uL (0-450); Eosinophils Percent Auto 3.8 % (2-4); Hematocrit 40.6 % (36-46); Hemoglobin 13.2 g/dL (12.0-16.0); Lymphocytes Absolute Auto 1800 /uL (1100-4500); Lymphocytes Percent Auto 34.5 % (25-40); Mean Corpuscular HGB Conc 32.4 % (30-36); Mean Corpuscular Hemoglobin 30.1 PG (26-34); Monocytes Absolute Auto 500 /uL (0-900); Monocytes Percent Auto 8.9 % (3-14); Neutrophils Absolute Auto 2800 /uL (1500-7000); Neutrophils Percent Auto 52.1 % (50-75); Platelet Count 202 X10^3/uL (150-400); Red Blood Cell Count 4.37 X10^6/uL (4.0-5.2); Red Cell Distribution Width 14.6 % (11.6-14.8); White Blood Cell Count 5.3 X10^3/uL (4.5-11.0)
[2021-03-17 12:14] LABS: Alanine Aminotransferase 19 IU/L (<35); Albumin 4.3 g/dL (3.5-5.0); Albumin Globulin Ratio 1.6 (1.0-2.8); Alkaline Phosphatase 32 U/L (38-126); Aspartate Aminotransferase 22 IU/L (14-36); BUN Creatinine Ratio 40.8 (6-22); Bilirubin Total 0.4 mg/dL (0.2-1.3); Blood Urea Nitrogen 20 mg/dL (7-17); Calcium 9.8 mg/dL (8.4-10.2); Carbon Dioxide 26 mmol/L (22-32); Chloride 105 mmol/L (98-107); Estimated Glomerular Filt Rate > 60.0 mL/min (>60); Globulin 2.7 g/dL (1.7-4.1); Glucose 91 mg/dL (80-110); HEMOLYSIS < 15 (0-50); Potassium 4.4 mmol/L (3.4-5.1)
[2021-03-17 12:15] LABS: Sodium 139 mmol/L (137-145)
== END ==
PROVIDERS: Internal Medicine Hematology & Oncology; PCP Naturopath; Referring Provider Orthopaedic Surgery Orthopaedic Surgery of the Spine; Visit Provider Orthopaedic Surgery Orthopaedic Surgery of the Spine
DX: Z01.818 Encounter for other preprocedural examination (principal); Z01.812 Encounter for preprocedural laboratory examination; C50.919 Malignant neoplasm of unspecified site of unspecified female breast
CPT/HCPCS: 36415; 80053; 85025; 93005

== ENCOUNTER → 2021-03-24 11:02 | Outpatient (CLI) | payer BC, SELFPAY ==
[2021-03-24 14:06] LABS: COVID19 -Nasal RAPID Negative (Negative)
== END ==
PROVIDERS: PCP Naturopath; Visit Provider Student in an Organized Health Care Education/Training Program
DX: Z01.812 Encounter for preprocedural laboratory examination (principal); Z20.822 Contact with and (suspected) exposure to COVID-19
CPT/HCPCS: 87635

== ENCOUNTER 2021-03-26 13:58 | Day surgery (SDC) | payer BC, SELFPAY ==
[2021-03-21 14:08] VITALS: BMI 26.1
[2021-03-26] VITALS (13 sets, daily range): BP systolic 113–143; BP diastolic 38–74; PULSE 60–82; RESP 10–97; TEMP 36.2–36.9; O2SAT 12–99; BMI 26.1
[2021-03-26] MEDS: LACTATED RINGERS 1,000 ML 42 ML IV (14:31)
--- NOTE | 2021-03-26 14:38 | PM.PREOP ---
Pre-operative Note COVID-19 COVID-19 status: Negative Result date/Date tested (Pos, Neg/Pending): 03/24/21 Interval Note History & Physical reviewed/Exam performed by Physician: Yes Changes to H&P: No
[2021-03-26] MEDS: CEFAZOLIN 2 GM/100 ML FROZ.PIGGY IV (15:20)
--- NOTE | 2021-03-26 15:46 | SUR.OPER ---
Prone on spine table, head in foam head support, padded chest and pelvic supports, gel pad at knees, lower legs supported by pillows; nipples, genitalia and toes free of pressure, arms secured on foam padded arm boards at <90 degrees abduction. Tape over blanket at thigh secured to table.
[2021-03-26] MEDS: BUPIVACAINE 0.5% W/ EPI (PF) 30 ML VIAL INJ (15:52)
[2021-03-26] MEDS: methylPREDNISolone acet DEPO 40 MG/ML VIAL INJ (15:53)
--- NOTE | 2021-03-26 15:59 | DI.RAD.S_ITS ---
PROCEDURE: XR LUMBAR SPINE 2-3V INDICATIONS: L5-S1 TLIF TECHNIQUE: 2 views of the lumbar spine were acquired. COMPARISON: [facility], MR, MR LUMBAR SPINE WITHOUT CONTRAST, 01/28/2021, 9:12. [facility], CR, XR LUMBAR SPINE 2-3V, 01/08/2021, 10:35. FINDINGS: Spot fluoroscopic intraoperative images demonstrating surgical instruments with the tips projecting at the L5-S1 level. Dictated by: Candelario Reeves M.D. on 03/26/2021 at 16:53 Approved by: Candelario Reeves M.D. on 03/26/2021 at 16:55
[2021-03-26] MEDS: fentaNYL 100 MCG/2 ML INJ IV ×3 (16:52→17:26)
--- NOTE | 2021-03-26 16:56 | PM.OP.1 ---
Operative Date/Time/Diagnoses Date of procedure: 03/26/21 Time of procedure: 15:56 Pre-op diagnosis: 1. L5-S1 disc herniation 2. Lumbar radiculopathy Post-op diagnosis: same Procedure & Clinicians Procedure: 1. L5-S1 right microdiscectomy 2. Utilization of microsurgical technique and operating microscope Same procedure as scheduled: Yes Indications: Patient has been having chronic back pain and worsening lumbar radiculopathy. Patient failed multiple conservative management with worsening pain weakness and numbness in her lower extremity. Patient has been having difficulty performing activity of daily living. After discussing risks benefits of treatment options, patient elected proceed with surgery. Surgeon: Constantino Guerrero Anatomy And Physiology Instructor: Chad Ricks Click Yes if Unassisted: No Anesthesia Type: General Operative Notes Closure Type: primary Specimen(s): none sent Estimated Blood Loss (mL): 5 Blood products transfused: none Procedure in detail: Patient was seen in the preoperative area. Risks and benefits of the surgery was discussed with the patient. Informed consent was obtained from the patient and placed in the chart. Surgical site was marked. Patient was taken to the operative room. General anesthesia was administered. Prophylactic antibiotic was given to the patient less than 30 min before the incision was made. Patient was placed into a prone position on the Franky table. Patient's back was then prepped and draped in the sterile fashion. Time-out was performed at this time. Using AP and lateral C-arm imaging the interval between L5-S1 was identified and marked on patient's back. A 1 inch incision 1 in from midline was made on the right side. The fascia was incised in line with skin incision. Globus MARS retractors was placed inside the incision and docked onto the L5 lamina. Using microsurgical technique and operating microscope, a L5 laminotomy was performed using a Kerrison rongeur. Liagamentum flavum was resected at the site of the laminotomy. The disc space at L5-S1 was identified. Microdiscectomy was performed by incising the annulus with #11 blade. Microcurettes and pituitary was used to removed herniated disc fragments of disc from the epidural space. Patient was found have a large disc bulge compressing on the right S1 nerve root. After the microdiskectomy was completed there is no other impinging structures on any neurologic structures. After the microdiskectomy was completed, the area medial lateral superior and inferior to the area of the microdiskectomy was inspected and explored using a micro curette. No other impinging structure was identified. The wound was then irrigated with sterile normal saline. 40 mg Depo-Medrol was placed into the epidural space. The deep fascia was closed with 1-0 Vicryl. The subcutaneous tissue was closed with 2-0 Vicryl. The skin was closed with 4-0 Monocryl. Patient tolerated the procedure well. There were no complications. Patient was transferred recovery room in stable condition. Complications: none Post-operative Condition: stable Disposition: PACU Plan for aftercare: Discharge to home
[2021-03-26] MEDS: ONDANSETRON 4 MG/2 ML INJ IV ×2 (17:01→17:06)
[2021-03-26] MEDS: OXYCODONE IR 5 MG TABLET PO (17:02)
[2021-03-26] MEDS: OXYCODONE/ACETAMINOPHEN 5/325 TABLET 1 TAB PO ×2 (17:15→17:45)
== END 2021-03-26 18:31 | disposition home or self-care (01) ==
PROVIDERS: PCP Naturopath; Referring Provider Orthopaedic Surgery Orthopaedic Surgery of the Spine; Visit Provider Orthopaedic Surgery Orthopaedic Surgery of the Spine
PROC: (CPT 63030; principal; 2021-03-26 15:15)
DX: M51.16 Intervertebral disc disorders with radiculopathy, lumbar region (principal)
CPT/HCPCS: 63030; 72100; 76000; J0690; J1030; J2405; J2704; J3010

== ENCOUNTER → 2022-05-18 09:28 | Outpatient (CLI) | payer BC, SELFPAY ==
[2022-05-18 10:27] LABS: Add Manual Diff / Slide Review NO; Basophils Absolute Auto 0 /uL (0-100); Basophils Percent Auto 0.8 % (0-2); Eosinophils Absolute Auto 100 /uL (0-450); Eosinophils Percent Auto 2.7 % (2-4); Hematocrit 40.6 % (36-46); Hemoglobin 13.7 g/dL (12.0-16.0); Lymphocytes Absolute Auto 1600 /uL (1100-4500); Lymphocytes Percent Auto 35.2 % (25-40); Mean Corpuscular HGB Conc 33.6 % (30-36); Mean Corpuscular Hemoglobin 29.5 PG (26-34); Mean Corpuscular Volume 87.6 fL (80-100); Monocytes Absolute Auto 400 /uL (0-900); Monocytes Percent Auto 9.5 % (3-14); Neutrophils Absolute Auto 2400 /uL (1500-7000); Neutrophils Percent Auto 51.8 % (50-75); Platelet Count 193 X10^3/uL (150-400); Red Blood Cell Count 4.64 X10^6/uL (4.0-5.2); Red Cell Distribution Width 13.3 % (11.6-14.8); White Blood Cell Count 4.6 X10^3/uL (4.5-11.0)
[2022-05-18 10:36] LABS: Alanine Aminotransferase 15 IU/L (<35); Albumin 4.4 g/dL (3.5-5.0); Albumin Globulin Ratio 1.5 (1.0-2.8); Alkaline Phosphatase 46 U/L (38-126); Aspartate Aminotransferase 20 IU/L (14-36); BUN Creatinine Ratio 17.2 (6-22); Bilirubin Total 0.5 mg/dL (0.2-1.3); Blood Urea Nitrogen 10 mg/dL (7-17); Carbon Dioxide 28 mmol/L (22-32); Chloride 104 mmol/L (98-107); Cholesterol 249 mg/dL (140-199); Estimated Glomerular Filt Rate > 60 mL/min (>60); Globulin 2.9 g/dL (1.7-4.1); Glucose 95 mg/dL (80-110); HDL Cholesterol 60 mg/dL (40-60); HEMOLYSIS < 15 (0-50); LDL Cholesterol Calculated 166 mg/dL (<100); Potassium 4.1 mmol/L (3.4-5.1); Sodium 139 mmol/L (137-145); Total Protein 7.3 g/dL (6.3-8.2); Triglycerides 114 mg/dL (35-150)
[2022-05-18 11:05] LABS: TSH w/ Reflex to FT4 1.39 uIU/mL (0.47-4.68)
== END ==
PROVIDERS: PCP Family Medicine; Referring Provider Family Medicine; Visit Provider Family Medicine
DX: C50.919 Malignant neoplasm of unspecified site of unspecified female breast (principal); F90.9 Attention-deficit hyperactivity disorder, unspecified type; Z17.0 Estrogen receptor positive status [ER+]
CPT/HCPCS: 36415; 80053; 80061; 84443; 85025